=== PATIENT | male | born 1955 ===

== ENCOUNTER 2017-10-13 07:27 | Day surgery (SDC) | payer OTHER ==
[~2017-10-13 07:27] MED LIST: ANTIBIOTIC OINT TP ONE; BACITRACIN ONE; MARCAINE 0.5% 30 ML INFILTRATI ONE; NACL P/F VIAL (10 ML) 0 ML ONE; XYLOCAINE 1% 20 mL ONE
[2017-10-13] MEDS ORDERED: DIPRIVAN 10 MG/ML IV ONE ×3 (08:05→11:02)
[2017-10-13] MEDS ORDERED: NACL BACTERIOSTATIC INFILTRATI ONE (08:12)
[2017-10-13 08:43] LABS: Basophils % (Auto) 0.8 % (0.0-1.8); Eosinophils # (Auto) 0.1 K/mm3 (0.0-0.4); Eosinophils % (Auto) 2.8 % (0.0-4.3); Hematocrit 42.1 % (35.5-45.6); Hemoglobin 13.5 gm/dl (11.8-15.2); Lymphocytes # (Auto) 1.8 K/mm3 (1.2-5.4); Lymphocytes % (Auto) 36.6 % (13.4-35.0); Mean Corpuscular HGB Conc 32 % (32-34); Mean Corpuscular Hemoglobin 27 pg (28-32); Mean Corpuscular Volume 83 fl (84-94); Monocytes # (Auto) 0.4 K/mm3 (0.0-0.8); Monocytes % (Auto) 8.2 % (0.0-7.3); Platelet Count 183 K/mm3 (140-440); Red Cell Distribution Width 13.9 % (13.2-15.2)
[2017-10-13 08:58] LABS: Alanine Aminotransferase 30 units/L (7-56); BUN/Creatinine Ratio 11; Blood Urea Nitrogen 11 mg/dL (9-20); Calcium 9.1 mg/dL (8.4-10.2); Hemolysis Index 8
[2017-10-13] MEDS ORDERED: DILAUDID IV PRN (09:05)
--- NOTE | 2017-10-13 09:05 | Anesthesia Day of Surgery ---
Anesthesia Day of Surgery - Day of Surgery Patient Examined: Yes Patient H&P Reviewed: Yes Patient is NPO: Yes
--- NOTE | 2017-10-13 09:05 | Anesthesia Consultation ---
Anesthesia Consult and Med Hx Date of service: 10/13/17 - Airway Anesthetic Teeth Evaluation: Dentures ROM Head & Neck: Adequate Mental/Hyoid Distance: Adequate Mallampati Class: Class II Intubation Access Assessment: Good - Pulmonary Exam CTA: Yes - Cardiac Exam Cardiac Exam: RRR - Pre-Operative Health Status ASA Pre-Surgery Classification: ASA3 Proposed Anesthetic Plan: General, MAC - Pulmonary Hx Smoking: Yes (STOPPED 2001 (1PPD SINCE 1975)) Hx Sleep Apnea: No (CAROLYN PRE SCREEN HIGH RISK) - Cardiovascular System Hx Hypertension: Yes (X 3 YRS) - Central Nervous System Hx Back Pain: Yes (WITH PAIN &WEAKNESS RAÚL LEGS) Hx Psychiatric Problems: Yes (? PTSD) - Endocrine Hx Non-Insulin Dependent Diabetes: Yes - Other Systems Hx Cancer: No - Additional Comments Anesthesia Medical History Comments: chronic pain. neuropathy. wheelchair bound
[2017-10-13] MEDS ORDERED: SUBLIMAZE ONE (09:26)
[2017-10-13] MEDS ORDERED: XYLOCAINE MPF 2% ONE (09:27)
[2017-10-13] MEDS ORDERED: ZOFRAN ONE (09:30)
[2017-10-13] MEDS ORDERED: ANCEF/STERILE WATER 2 GM/20 ML IV NR (10:00)
[2017-10-13] MEDS ORDERED: NACL 0.9% 1000 ML 1,000 ML IV SCH (10:00)
[2017-10-13] MEDS ORDERED: MARCAINE 0.5% INFILTRATI ONE (10:20)
[2017-10-13] MEDS ORDERED: NACL 0.9% IR ONE (10:23)
[2017-10-13] MEDS ORDERED: XYLOCAINE 1% 20 mL INFILTRATI ONE (10:23)
[2017-10-13 13:04] VITALS: BP 128/74
--- NOTE | 2017-10-13 13:31 | Post Anesthesia Evaluation ---
- Post Anesthesia Evaluation Patient Participated: Yes Airway Patent: Yes Stable Respiratory Function: Yes Nausea/Vomiting: No Temp > 96.8F: Yes Pain Manageable: Yes Adequeate Hydration: Yes Anesthesia Complications: No
--- NOTE | 2017-10-13 14:00 | XRay Report ---
THORACIC SPINE RADIOGRAPHS INDICATION: Radiculopathy. COMPARISON: None similar at this institution. FINDINGS: Dorsal column stimulator insertion performed by Dr. Downs. Frontal and cross table lateral intraoperative fluoroscopic radiographs demonstrate thoracic spine stimulator leads with markers toward the tip projecting over labeled T7-T9 vertebral bodies. CONCLUSION: Intraoperative fluoroscopic assistance provided, as described. Thank you for the opportunity to participate in this patient's care.
[2017-10-13] MEDS ORDERED: KEFLEX PO SCH (22:00)
--- NOTE | 2017-10-17 09:55 | Operative Report ---
Operative Report Operative Report: Procedure performed today: SPINAL CORD STIMULATOR TRIAL with [employer] Mr. Wolf is a 62 year old male patient with a history of lumbar radiculopathy who was scheduled to undergo a spinal cord stimulator trial. He was seen and examined today prior to the procedure; at that time, risks and benefits of the procedure were discussed, as well as alternative options. Discussion included the possibility for no effect, increased pain, damage to nearby structures, bleeding, hematoma, and infection, with disclaimer given that this was not an all-inclusive list. The patient denies a history of coagulopathy, signs or symptoms of a recent infection, or significant changes in her health since our last evaluation. He demonstrated a good understanding of the risks, benefits, and alternatives, and agreed to proceed. Verbal and written consent was obtained accordingly. Ancef was administered to patient during pre-op; monitors with oxygen were available. The back area was prepped and draped with abundant ChloraPrep and sterile fashion was utilized using towels and a half-sheet. A time-out was performed to identify the correct patient, procedure, side, and site. With the use of fluoroscopy, we identified the left pedicle at an appropriate distance below the selected interspace. The medial aspect of the pedicle was marked and the skin overlying this area was anesthetized with 1% lidocaine with a 25-gauge, 1.5inch needle. Subsequently, a 22-gauge, 3.5in spinal needle was advanced to the skin and guide to the T11-T12 interspace. We remained parallel to the lamina by advancing with lateral fluoroscopic images. Once we were near the T11-T12 interspace, we administered a total of 5 cc of lidocaine 1% in the tract of the spinal needle and a total of 5 cc of bupivacaine 0.25% was injected in the same tract as the needle was withdrawn. Once this had been performed, we made a small skin noam with an 18 G needle. Subsequently, a 4in [employer] needle was advanced to the skin opening and towards the selected interspace. Taking a slightly medial approach, we again remained parallel to the lamina. Once within 0.5 cm of epidural space, the stylette was removed and the glass loss of resistance was attached for the use of loss of resistance. Once loss of resistance was encountered, we advanced the [employer] lead easily to the needle tip and into the epidural space. Using AP fluoroscopic guidance, we guided the needle cephalad, remaining in the midline position. Lateral fluoroscopic images demonstrated appropriate posterior placement of the leads. The lead was advanced to the top of the T7 vertebrae, corrected slightly off of midline. Once this had been performed, we then performed interrogation and lead testing with the assistance of the company [email or web address] sales representative. The patient reported she had relief consistent with ihs areas of pain. This procedure was then repeat in mirror fashion on the contralateral side. The second lead was placed at the top of the T7 vertebrae. The lead(s) were secured to the skin with adhesive dressing. The area was dressed with occlusive dressing , and the patient was transferred to the recovery room where he will be monitored and discharged home once criteria is met. The patient was provided with postoperative instructions, a pain diary/log, and follow-up was scheduled at an appropriate interval. Patient was instructed to call the clinic or go to the ER if he notices any progression of numbness, tingling, weakness, changes in bowel/bladder control, or fever.
== END 2017-10-13 12:35 | disposition home or self-care (01) ==
LOC: OR 07:27
PROVIDERS: ATTEND Radiology Diagnostic Radiology
DX: M54.16 Radiculopathy, lumbar region (principal); G89.29 Other chronic pain; E11.42 Type 2 diabetes mellitus with diabetic polyneuropathy; I10 Essential (primary) hypertension; Z87.891 Personal history of nicotine dependence; Z79.899 Other long term (current) drug therapy; Z88.8 Allergy status to other drugs, medicaments and biological substances; Z88.6 Allergy status to analgesic agent
CPT/HCPCS: 36415; 63650; 72070; 80053; 82962; 85025; C1778; C1820; J2405; J2704; J3010; J7030